=== PATIENT | female | born 1970 | race Caucasian/White ===

== ENCOUNTER 2018-10-16 05:51 | Emergency (ER) | payer OTHER, SELFPAY ==
[2018-10-16 06:00] VITALS: BP 131/76; PULSE 84; RESP 20; TEMP 36.9; O2SAT 99; BMI 28.3
--- NOTE | 2018-10-16 06:02 | DI.CT.S_ITS ---
PROCEDURE: CT ANGIO CHEST PE PROTOCOL INDICATIONS: pleuritic Chest pain, dyspnea, tachycardia, significant travel TECHNIQUE: After the administration of intravenous contrast, 2 mm thick sections acquired from the pulmonary apices to the posterior costophrenic angles. 3-dimensional maximum intensity projection (MIP) coronal and sagittal reformats were then acquired through the thorax. For radiation dose reduction, the following was used: automated exposure control, adjustment of mA and/or kV according to patient size. COMPARISON: None. FINDINGS: Image quality: Excellent. Pulmonary arteries: Pulmonary arteries are normal in size, and demonstrate no intraluminal filling defects to suggest central pulmonary embolism. Lungs and pleura: Patchy infiltrate/atelectasis in posterior aspect of bilateral lower lobes are seen more prominent on the right side. There is small right pleural effusion. Subtle hazy groundglass opacity in posterior aspect of bilateral lower lobes also noted. No pneumothorax. Central and peripheral airways are patent. Mediastinum: Heart size is normal, without pericardial effusion. Mildly enlarged mediastinal lymph nodes are seen measures up to 1.2 cm in short axis diameter in subcarinal space Thoracic aorta is normal in caliber and enhancement. Esophagus is normal in caliber, without hiatal hernia. Bones and chest wall: No suspicious bony lesions. Ribs and thoracic spine appear intact throughout. Thyroid gland and is unremarkable. No axillary or supraclavicular adenopathy. Abdomen: Visualized upper abdominal solid organs appear normal in the early arterial phase of enhancement. IMPRESSION: 1. No evidence of pulmonary emboli. No thoracic aortic aneurysm or dissection. 2. Small right pleural effusion and ill-defined patchy infiltrate/atelectasis in posterior aspect of bilateral lower lobes. Hazy groundglass opacity also seen in bilateral lower lung field suggestive of mild pulmonary edema. No pneumothorax. Airway is patent. 3. Mildly enlarged mediastinal lymph nodes suggestive of reactive inflammatory lymphadenopathy. Dictated by: Richi Yeh M.D. on 10/16/2018 at 7:08 Approved by: Richi Yeh M.D. on 10/16/2018 at 7:13
--- NOTE | 2018-10-16 06:24 | ED.CHESTPAIN ---
HPI - Chest Pain General Chief Complaint: Chest Pain Stated Complaint: chest pain right side Time Seen by Provider: 10/16/18 05:55 Source: patient Mode of arrival: ambulatory Limitations: no limitations History of Present Illness HPI narrative: 48-year-old female nonsmoker with benign medical history presents with her in the chief complaint of 2 days of gradually worsening right anterior chest pain with radiation to her back. She describes it as sharp, stabbing and reproducible. She denies any significant injury nor recent illness involving runny nose or sneezing. She has had a bit of a nagging cough for quite some time. She denies any hemoptysis, history of blood clots or cancer. She denies any overuse. She has significant international travel and has recently flown from [facility] and been living in [facility] [place] complaint: chest pain Onset (ago): day(s) Duration: constant Pain location: right chest Severity: moderate Quality: sharp Pain radiation: back Relieving factors: rest Exacerbating factors: inspiration and movement Context: recent travel Treatments prior to arrival chest pain: none Review of Systems Constitutional Denies chills, Denies fever(s), Denies lethargy and Denies weakness Eyes Denies change in vision, Denies eye discharge, Denies irritation and Denies loss of vision ENT Ears, Nose, Mouth, and Throat: Denies change in voice, Denies neck pain and Denies sore throat Cardiovascular Reports chest pain, Denies irregular heart rhythm, Denies lightheadedness, Denies palpitations, Denies dyspnea, Denies dyspnea on exertion and Denies orthopnea Respiratory Denies cough, Reports pain on inspiration, Reports pain with cough, Denies dyspnea, Denies dyspnea on exertion and Denies wheezing Gastrointestinal Gastrointestinal: Denies abdominal pain, Denies change in bowel habits, Denies diarrhea, Denies nausea and Denies vomiting Genitourinary Denies hematuria, Denies flank pain, Denies urinary incontinence and Denies urinary urgency Musculoskeletal Denies neck pain Integumentary/Breasts Denies pruritus, Denies erythema, Denies rash and Denies wounds Neurologic Denies confusion, Denies loss of vision and Denies weakness Psychiatric Denies anxiety, Denies confusion, Denies depression, Denies homicidal ideation and Denies suicidal ideation Endocrine Denies palpitations Hematologic/Lymphatic Denies easy bruising Allergic/Immunologic Denies wheezing PFSH Social History Smoking Status: Never smoker Social History Smoking Status: Never smoker Exam Narrative Exam Narrative: GENERAL: 40-year-old female HEAD: Atraumatic. Normocephalic. No temporal or scalp tenderness. EYES: Pupils equal round and reactive. Extraocular motions intact. No scleral icterus. No injection or drainage. ENT: Nose without bleeding, purulent drainage or septal hematoma. Throat without erythema, tonsillar hypertrophy or exudate. Uvula midline. Airway patent. NECK: Trachea midline. No JVD or lymphadenopathy. Supple, nontender, no meningeal signs. CARDIOVASCULAR: Regular rate and rhythm without murmurs, gallops, or rubs. RESPIRATORY: Clear to auscultation. Breath sounds equal bilaterally. No wheezes, rales, or rhonchi. GASTROINTESTINAL: Abdomen soft, non-tender, nondistended. No hepato-splenomegaly, or palpable masses. No guarding. EXTREMITIES: No clubbing, cyanosis, or edema. No joint tenderness, effusion, or edema noted. BACK: Nontender without deformity or crepitance. No flank tenderness. NEURO: AOx3. SKIN: No rash or erythema. Initial Vital Signs Initial Vital Signs: Vital Signs Temperature 98.4 F 10/16/18 06:00 Pulse Rate 84 10/16/18 06:00 Respiratory Rate 20 10/16/18 06:00 Blood Pressure 131/76 10/16/18 06:00 Pulse Oximetry 99 10/16/18 06:00 Course Orders Ordered: ED Orders 10/16/18 EKG-12 Lead Routine 10/16/18 06:02 CT angio chest PE protocol Stat 10/16/18 06:05 B Type Natriuretic Peptide Stat Basic Metabolic Panel Stat Complete Blood Count AUTO DIFF Stat Procalcitonin Stat Troponin I Stat Reevaluation(s) Reevaluation #1: Pleuritic type chest pain is certainly worse with a deep breath, resulting in rapid shallow breathing but not made worse with use of right upper extremity or palpation of anterior chest Vital Signs - 8 hr 10/16/18 06:00 10/16/18 06:50 10/16/18 07:00 Temperature 98.4 F Pulse Rate 84 73 78 Respiratory Rate 20 22 22 Blood Pressure 131/76 Blood Pressure [Left Arm] 131/74 128/75 Pulse Oximetry 99 100 99 MDM - Chest Pain Lab Data Result diagrams: 10/16/18 06:05 10/16/18 06:05 Lab Results 10/16/18 10/16/18 10/16/18 Range/Units 06:05 06:05 06:05 WBC 9.2 (4.5-11.0) X10^3/uL RBC 4.84 (4.0-5.2) X10^6/uL Hgb 15.0 (12.0-16.0) g/dL Hct 44.0 (36-46) % MCV 90.8 (80-100) fL MCH 31.0 (26-34) PG MCHC 34.1 (30-36) % RDW 13.1 (11.6-14.8) % Plt Count 263 (150-400) X10^3/uL Neut % (Auto) 77.1 H (50-75) % Lymph % (Auto) 15.3 L (25-40) % [place] % (Auto) 6.4 (3-14) % Eos % (Auto) 1.0 L (2-4) % Baso % (Auto) 0.2 (0-2) % Neut # (Auto) 7100 H (3155-5987) /uL Lymph # (Auto) 1400 (4935-0910) /uL [place] # (Auto) 600 (0-900) /uL Eos # (Auto) 100 (0-450) /uL Baso # (Auto) 0 (0-100) /uL Sodium 143 (137-145) mmol/L Potassium 4.8 (3.4-5.1) mmol/L Chloride 110 H (98-107) mmol/L Carbon Dioxide 23 (22-32) mmol/L BUN 10 (7-17) mg/dL Creatinine 0.60 (0.52-1.04) mg/dL Estimated GFR > 60.0 (>60) mL/min BUN/Creatinine Ratio 16.7 (6-22) Glucose 91 (70-100) mg/dL Calcium 9.4 (8.4-10.2) mg/dL Troponin I < 0.012 (0.01-0.034) ng/mL B-Natriuretic Peptide < 100 (<100) Procalcitonin < 0.05 (<0.5) ng/mL Imaging Data CT scan - chest: Radiologist's impression: No PE, pneumonia small effusion with atelectasis ECG Data Attestation: I personally reviewed and interpreted this ECG as follows: Prior ECG tracings: not available for review Interpretation: EKG is normal sinus rhythm rate [ 80] and free of any signs of ischemia or ectopy. No ST segmental elevation or depression. No T wave inversions MDM Narrative Medical decision making narrative: 48-year-old female nonsmoker and otherwise healthy presents with shortness of breath, right anterior pleuritic type chest pain with radiation to her back and a history of extensive international travel. Patient has had mild cough without sputum for about 3 weeks which is likely cause of pleurisy. Labs are unremarkable. CTA demonstrates no PE or other significant finding. Discharge Plan Departure Patient Disposition: Home Clinical Impression: Pleurisy Instructions: DI for Pleurisy Activity Restrictions/Additional Instructions: *You have been diagnosed with [atypical chest pain, most likely pleurisy] *What to do: *Take medications as directed *Follow up with your primary care provider in 2-3 days, call for an appointment. Let them know you were seen in the Emergency Department and that we ask that you be seen in follow up *Return to ER if you should have any new, worsening or concerning symptoms
[2018-10-16 06:29] LABS: Add Manual Diff / Slide Review NO; Basophils Absolute Auto 0 /uL (0-100); Basophils Percent Auto 0.2 % (0-2); Eosinophils Absolute Auto 100 /uL (0-450); Lymphocytes Absolute Auto 1400 /uL (1100-4500); Lymphocytes Percent Auto 15.3 % (25-40); Mean Corpuscular HGB Conc 34.1 % (30-36); Mean Corpuscular Volume 90.8 fL (80-100); Monocytes Absolute Auto 600 /uL (0-900); Monocytes Percent Auto 6.4 % (3-14); Neutrophils Absolute Auto 7100 /uL (1500-7000); Neutrophils Percent Auto 77.1 % (50-75); Platelet Count 263 X10^3/uL (150-400); Red Blood Cell Count 4.84 X10^6/uL (4.0-5.2); Red Cell Distribution Width 13.1 % (11.6-14.8); White Blood Cell Count 9.2 X10^3/uL (4.5-11.0)
--- NOTE | 2018-10-16 06:41 | PC.NURSE ---
PT states sharp stabbing right sided CP with radiation to back worsening over past 2 days and worse when takes a deep breath. Pt states took 3 naproxen for pain. Pt is here visiting her Mom, lives in [facility] and recently flew here from [facility]. Reports she has a nagging cough and denies dyspnea or nausea. PT alert and oriented, able to speak in full sentences.
[2018-10-16 06:45] LABS: BUN Creatinine Ratio 16.7 (6-22); Blood Urea Nitrogen 10 mg/dL (7-17); Calcium 9.4 mg/dL (8.4-10.2); Carbon Dioxide 23 mmol/L (22-32); Chloride 110 mmol/L (98-107); Estimated Glomerular Filt Rate > 60.0 mL/min (>60); Glucose 91 mg/dL (70-100); HEMOLYSIS 41 (0-50); Potassium 4.8 mmol/L (3.4-5.1); Sodium 143 mmol/L (137-145)
[2018-10-16 06:50] VITALS: BP 131/74; PULSE 73; RESP 22; O2SAT 100
[2018-10-16 06:56] LABS: Troponin I < 0.012 ng/mL (0.01-0.034)
[2018-10-16 07:00] VITALS: BP 128/75; PULSE 78; RESP 22; O2SAT 99
[2018-10-16 07:10] LABS: B Type Natriuretic Peptide < 100 (<100)
[2018-10-16 07:11] LABS: Procalcitonin < 0.05 ng/mL (<0.5)
== END 2018-10-16 07:33 | disposition home or self-care (01) ==
PROVIDERS: Emergency Provider Emergency Medicine
DX: R09.1 Pleurisy (principal); R07.9 Chest pain, unspecified
CPT/HCPCS: 36591; 71275; 80048; 83880; 84145; 84484; 85025; 93005; 99282; 99285; Q9967